=== PATIENT | female | born 1950 | race Two or more races ===

== ENCOUNTER 2023-08-15 18:33 | Emergency (ER) | payer OTHER ==
[~2023-08-15] VITALS: Ht 142.2 cm; Wt 86.2 kg
[2023-08-15] MEDS ORDERED: ATACAND16 MG (20:15)
[2023-08-15] MEDS ORDERED: PRECOSE25 MG (20:15)
[2023-08-15] MEDS ORDERED: ZETIA10 MG (20:16)
[2023-08-15] MEDS ORDERED: CALTRATE 600+D1 EAC1 PO (20:16)
[2023-08-15] MEDS ORDERED: CRESTOR5 MG PO (20:16)
[2023-08-15] MEDS ORDERED: KETOROLAC TROMETHAMINE 30 MG VIAL IM STA (22:33)
[2023-08-15] MEDS ORDERED: KETOROLAC TROMETHAMINE 30 MG VIAL ONE (22:39)
[2023-08-15] MEDS ORDERED: KETO10TA2 PO (23:10)
== END 2023-08-15 23:29 | disposition home or self-care (01) ==
LOC: ER 18:34
DX: S83.8X2A Sprain of other specified parts of left knee, initial encounter (principal); W18.39XA Other fall on same level, initial encounter; Y93.89 Activity, other specified; Y92.89 Other specified places as the place of occurrence of the external cause; Z91.013 Allergy to seafood
CPT/HCPCS: 73564; 96372; 99283; J1885